=== PATIENT | female | born 1960 | race Caucasian/White ===

== ENCOUNTER 2017-02-19 12:10 | Emergency (ER) | payer SELFPAY ==
[~2017-02-19] VITALS: Ht 165.1 cm; Wt 70.3 kg
--- NOTE | 2017-02-19 14:06 | NUR ---
Patient eloped from facility. ER physician notified.
--- NOTE | 2017-02-19 14:18 | NUR ---
Pt returned to ER , stated she had to go out to her car. Dr. Woodard notified.
--- NOTE | 2017-02-19 14:20 | NUR ---
Pt states she wants to talk with the doctor, notified.
--- NOTE | 2017-02-19 14:50 | NUR ---
Patient discharged to home in stable conditon. Written and verbal after care instructions given. Patient verbalizes understanding of instructions.
== END 2017-02-19 14:08 | disposition left against medical advice (07) ==
LOC: ER 12:10
DX: J43.9 Emphysema, unspecified (principal); R07.89 Other chest pain; J90 Pleural effusion, not elsewhere classified; E78.5 Hyperlipidemia, unspecified; K58.9 Irritable bowel syndrome, unspecified; F17.200 Nicotine dependence, unspecified, uncomplicated
CPT/HCPCS: 71250; 93005; 99284; A4663

== ENCOUNTER 2022-05-19 11:40 | Emergency (ER) | payer OTHER ==
[~2022-05-19] VITALS: Ht 170.2 cm; Wt 69.9 kg
--- NOTE | 2022-05-19 12:42 | NUR ---
Patient does not wish to proceed with medical care recommended by Dr. Olvera). Patient given information related to possible complications, up to and including , which could occur as a result of leaving the hospital at this time. Patient verbalizes understanding of risks involved due to leaving against medical advice. Patient has signed AMA form.
[2022-05-19 12:52] VITALS: BP 119/77
== END 2022-05-19 13:00 | disposition left against medical advice (07) ==
LOC: ER 11:40
DX: R07.89 Other chest pain (principal); Z53.29 Procedure and treatment not carried out because of patient's decision for other reasons; K58.9 Irritable bowel syndrome, unspecified; F17.200 Nicotine dependence, unspecified, uncomplicated; J45.909 Unspecified asthma, uncomplicated
CPT/HCPCS: 93005; A4663

== ENCOUNTER 2023-07-17 13:12 | Emergency (ER) | payer OTHER ==
[~2023-07-17] VITALS: Ht 170.2 cm; Wt 69.9 kg
[2023-07-17] MEDS ORDERED: hydrOXYzine HCL 25 MG TABLET ONE (14:11)
[2023-07-17] MEDS ORDERED: PHENAZOPYRIDINE HCL 100 MG TABLET ONE (14:11)
[2023-07-17] MEDS: HYDROXYZINE PAMOATE 25 MG CAPSULE PO STA (14:15)
[2023-07-17] MEDS: PHENAZOPYRIDINE HCL 100 MG TABLET PO ONE (14:15)
[2023-07-17] MEDS ORDERED: [UNRECOGNIZED DRUG - CODE] PO (15:47)
[2023-07-17] MEDS ORDERED: GABA-536 PO (15:47)
[2023-07-17 15:59] LABS: *BILIRUBIN,URIN NEGATIVE (NEGATIVE); *CLARITY,URINE CLEAR (CLEAR); *COLOR,URINE YELLOW (YELLOW); *KETONES,URINE NEGATIVE (NEGATIVE); *PROTEIN,URINE NEGATIVE (NEGATIVE); *UROBILINOGEN,URINE 0.2 E.U./dl (NORMAL); LEUKOCYTE ESTERASE ,URINE NEGATIVE (NEGATIVE); NITRITE, URINE NEGATIVE (NEGATIVE); UGLUCOSE NEGATIVE (NEGATIVE)
[2023-07-17] MEDS ORDERED: GABA-532 PO (15:59)
[2023-07-17] MEDS ORDERED: PHEN-895 PO (16:00)
[2023-07-17 16:01] LABS: *BLOOD, URINE TRACE (NEGATIVE)
[2023-07-17 16:09] VITALS: BP 133/80; TEMP 97; O2SAT 99
[2023-07-17 21:47] LABS: BACTERIA,URINE NONE SEEN /HPF (NONE SEEN); RBC,URINE 0-3 /HPF (0-3); SQUAMOUS EPITHELIAL CELL,UR NONE SEEN /HPF (NONE SEEN); WBC,URINE NONE SEEN /HPF (0-3)
== END 2023-07-17 16:10 | disposition home or self-care (01) ==
LOC: ER 13:16
DX: F41.9 Anxiety disorder, unspecified (principal); N32.81 Overactive bladder; J45.909 Unspecified asthma, uncomplicated; F17.200 Nicotine dependence, unspecified, uncomplicated; Z98.890 Other specified postprocedural states; Z79.899 Other long term (current) drug therapy; Z20.822 Contact with and (suspected) exposure to COVID-19; Z60.2 Problems related to living alone
CPT/HCPCS: A4606; A4663

== ENCOUNTER 2023-12-28 10:16 | Emergency (ER) | payer OTHER ==
[~2023-12-28] VITALS: Ht 165.1 cm; Wt 79.4 kg
[~2023-12-28 10:16] MED LIST: GABA-532 PO; GABA-536 PO; PHEN-895 PO
[2023-12-28 10:45] LABS: BASOPHILS # (AUTO) 0.2 K/UL (0.0-0.2); BASOPHILS % (AUTO) 4.1 % (0.0-2.0); EOSINOPHILS # (AUTO) 0.1 K/uL (0.0-0.7); EOSINOPHILS % (AUTO) 2.5 % (0.0-7.0); HEMATOCRIT 46.3 % (31.2-41.9); HEMOGLOBIN 15.4 g/dL (10.9-14.3); LYMPHOCYTES # (AUTO) 1.7 K/uL (0.8-4.8); LYMPHOCYTES % (AUTO) 29.3 % (20.5-51.5); MEAN CORPUSCULAR HEMOGLOBIN 30.7 uug (24.7-32.8); MEAN CORPUSCULAR HGB CONC 33 g/dL (32.3-35.6); MEAN CORPUSCULAR VOLUME 92.3 fL (75.5-95.3); MONOCYTES # (AUTO) 0.5 K/uL (0.1-1.30); MONOCYTES % (AUTO) 9.1 % (0.0-11.0); NEUTROPHILS # (AUTO) 3.2 K/uL (1.8-8.9); PLATELET COUNT (AUTO) 227 K/uL (179-408); RED BLOOD CELL COUNT(AUTO) 5.02 MIL/uL (3.63-4.92); RED CELL DISTRIBUTION WIDTH 14.4 % (12.3-17.7); WHITE BLOOD COUNT (AUTO) 5.8 K/uL (3.8-11.8)
[2023-12-28 10:54] LABS: DIFFERENTIAL COMMENT 1
[2023-12-28 11:00] LABS: CALCIUM 9.5 mg/dL (8.5-10.1); CREATININE 0.8 mg/dL (0.6-1.3); POTASSIUM 4.4 mmol/L (3.5-5.1)
[2023-12-28 11:01] LABS: *BILIRUBIN,URIN NEGATIVE (NEGATIVE); *CLARITY,URINE CLEAR (CLEAR); *COLOR,URINE YELLOW (YELLOW); *KETONES,URINE NEGATIVE (NEGATIVE); *PROTEIN,URINE NEGATIVE (NEGATIVE); *UROBILINOGEN,URINE 0.2 E.U./dl (NORMAL); LEUKOCYTE ESTERASE ,URINE NEGATIVE (NEGATIVE); NITRITE, URINE NEGATIVE (NEGATIVE); PH,URINE 6.5 (5.0-8.0); UGLUCOSE NEGATIVE (NEGATIVE)
[2023-12-28 11:05] LABS: ALBUMIN 3.7 g/dL (3.4-5.0); BILIRUBIN,DIRECT 0.1 mg/dL (0.0-0.2); BILIRUBIN,TOTAL 0.8 mg/dL (0.2-1.0); TOTAL PROTEIN, SERUM 7.4 g/dL (6.4-8.2)
[2023-12-28 11:09] LABS: *BLOOD, URINE TRACE (NEGATIVE)
[2023-12-28 11:31] LABS: BACTERIA,URINE FEW /HPF (NONE SEEN); RBC,URINE 0-3 /HPF (0-3); SQUAMOUS EPITHELIAL CELL,UR FEW /HPF (NONE SEEN); WBC,URINE 0-3 /HPF (0-3); YEAST,URINE RARE /HPF (NONE SEEN)
[2023-12-28 12:20] VITALS: BP 127/106; O2SAT 96
== END 2023-12-28 12:21 | disposition home or self-care (01) ==
LOC: ER 10:16
DX: G89.29 Other chronic pain (principal); R10.30 Lower abdominal pain, unspecified; E78.5 Hyperlipidemia, unspecified; J45.909 Unspecified asthma, uncomplicated; F17.210 Nicotine dependence, cigarettes, uncomplicated; Z98.890 Other specified postprocedural states; Z79.899 Other long term (current) drug therapy; Z60.2 Problems related to living alone
CPT/HCPCS: 36415; 83690; 85025; 85730; A4606; A4663